=== PATIENT | female | born 1965 | race Two or more races ===

== ENCOUNTER 2018-03-02 14:59 | Emergency (ER) | payer OTHER ==
[~2018-03-02] VITALS: Ht 162.6 cm; Wt 53.5 kg
== END 2018-03-02 19:09 | disposition home or self-care (01) ==
LOC: ER 14:59
DX: B30.3 Acute epidemic hemorrhagic conjunctivitis (enteroviral) (principal); K50.90 Crohn's disease, unspecified, without complications

== ENCOUNTER 2023-11-01 07:03 | Outpatient (CLI) | payer OTHER | END 2023-11-01 07:06 | disposition home or self-care (01) | LOC: RX STUDY 07:03 | PROVIDERS: ATTEND Internal Medicine Gastroenterology | DX: K50.90 Crohn's disease, unspecified, without complications (principal) ==